=== PATIENT | male | born 1965 | race Caucasian/White ===

== ENCOUNTER 2019-09-13 09:25 | Emergency (ER) | payer OTHER ==
[~2019-09-13] VITALS: Ht 188 cm; Wt 88.6 kg
[2019-09-13 10:18] LABS: HEMOGLOBIN 11.6 g/dl (13.5-18.0); MEAN CELL VOLUME 85 fl (80.0-100.0); MEAN CORPUSCULAR HEMOGLOBIN 30 pg (27.0-31.0); MEAN CORPUSCULAR HGB CONC 35 g/dl (33.0-37.0); MEAN PLATELET VOLUME 8.6 fl (7.4-10.4); PLATELET COUNT 153 K/mm3 (130-400); RED BLOOD COUNT 3.91 M/mm3 (4.20-5.60); REDCELL DISTRIBUTION WIDTH-CV 13.2 % (11.5-14.5)
[2019-09-13 10:19] LABS: HEMATOCRIT 33.3 % (42.0-52.0)
[2019-09-13] MEDS ORDERED: HCTZ 25MG TAB25 MG PO (10:29)
[2019-09-13] MEDS ORDERED: PRIL40 PO (10:29)
[2019-09-13] MEDS ORDERED: ANORO IH (10:30)
[2019-09-13 10:31] LABS: ALBUMIN 3.6 gm/dL (3.5-5.0); BILIRUBIN,TOTAL 0.7 mg/dL (0.0-1.0); CALCIUM 8.8 mg/dL (8.4-10.2); CREATININE, serum 1.79 (0.66-1.25); TOTAL PROTEIN 7.1 gm/dL (6.4-8.2)
[2019-09-13] MEDS ORDERED: PROVENTIL0.09 MG/A1 IH (10:31)
[2019-09-13] MEDS ORDERED: COZAAR 25MG25 MG/TAB PO (10:32)
[2019-09-13] MEDS ORDERED: MOBIC15 MG PO (10:33)
[2019-09-13] MEDS ORDERED: VYVANSE40 MG PO (10:34)
[2019-09-13 10:50] LABS: BAND 38 % (0-10); EOSINOPHIL 1 % (0-4); LYMPHOCYTE 8 % (20.0-51.0); NEUTROPHILS 49 % (42.0-75.2); PLATELET ESTIMATE NORMAL (NORMAL)
[2019-09-13 10:59] LABS: COLLECTION METHOD CLEAN CATCH
[2019-09-13 11:02] LABS: C-REACTIVE PROTEIN 29.6 mg/dL (0.0-0.9)
[2019-09-13 11:26] LABS: PH 5 (5-8); URINE APPEARANCE Hazy; URINE COLOR Yellow; URINE PROTEIN(semi-quant) 1+ (NEGATIVE)
[2019-09-13 11:27] LABS: SQUAMOUS EPITHELIAL 0-2 /hpf; URINE BILIRUBIN Negative (NEGATIVE); URINE BLOOD 1+ (NEGATIVE); URINE GLUCOSE Negative (NEGATIVE); URINE KETONE Negative (NEGATIVE); URINE LEUKOCYTE ESTERASE 1+ (NEGATIVE); URINE NITRATE Positive (NEGATIVE); URINE RBC 0-2 /hpf; URINE UROBILINOGEN Negative (NEGATIVE)
[2019-09-13] MEDS ORDERED: NORCO 325 MG-51 TAB PO (15:24)
[2019-09-13] MEDS ORDERED: OMNICEF 300MG300 MG PO (15:24)
[2019-09-13] MEDS ORDERED: ZOFRAN ODT4 MG PO (15:24)
[2019-09-13 15:50] VITALS: BP 103/69; PULSE 91; TEMP 101.5
== END 2019-09-13 15:50 | disposition home or self-care (01) ==
LOC: COL.ER 09:25
PROVIDERS: Emergency Medicine
DX: N12 Tubulo-interstitial nephritis, not specified as acute or chronic (principal)
CPT/HCPCS: J0696; J1170; J2405; J3475; J3480; J7030; J7120